=== PATIENT | male | born 1990 | race Caucasian/White ===

== ENCOUNTER 2022-12-07 08:45 | Emergency (ER) | payer BC, SELFPAY ==
--- NOTE | 2022-12-07 08:50 | ED.GENADULT ---
HPI - General Adult General Chief complaint: Arrhythmia/Palpitations Stated complaint: high blood pressure Time Seen by Provider: 12/07/22 08:51 Source: patient Mode of arrival: ambulatory Limitations: no limitations History of Present Illness HPI narrative: Amador is a 32-year-old male patient presenting to the clinic today with complaints of shortness of breath on exertion, headache, blurry vision, dizziness, palpitations, and high blood pressure. He reports symptoms of shortness of breath began approximately 4 days ago. States he is more short of breath with exertion. Feels as though he has an unsteady gait like he may be intoxicated-cannot focus with his eyes as he feels like he is intoxicated. Blood pressure was 134/81 in the clinic today. He does not take any blood pressure medications. He has taken his blood pressure several times over the last few days with his highest pressure being systolic 150s. States he feels as though his heart is trying to beat out of his chest at time-rates this discomfort a 2/10. Headache is a 5 to 6/10. Denies any illicit drug use, energy drinks, or increase in stress. He denies any URI symptoms. He denies any blood in his stool or hematemesis. Family history of diabetes. Related Data Allergies Allergy/AdvReac Type Severity Reaction Status Date / Time amoxicillin Allergy Unknown Skin Verified 12/07/22 09:07 Reaction erythromycin base Allergy Unknown Nausea Verified 12/07/22 09:07 imipramine Allergy Unknown agitation Verified 12/07/22 09:07 Review of Systems Review of Systems: Pertinent positives per HPI. Patient denies any fever, chills, rash, visual changes, cough, runny nose, sore throat, shortness of breath, chest pain, palpitations, nausea, vomiting, diarrhea, constipation, abdominal pain, or any urinary issues. [facility] Past Medical History Medical History (Updated 12/07/22 @ 11:11 by Isabel Garcia PA-C) No pertinent past medical history Surgical History Surgical History (Updated 12/07/22 @ 11:11 by Isabel Garcia PA-C) No pertinent past surgical history Family History Family History Father Diabetes mellitus Social History Social History (Reviewed 12/07/22 @ 08:51 by JOSE G Paniagua Smoking status: Never smoker Comments At the time of my signature, I reviewed and agree with the nursing past medical, surgical, social, and family history. There is no relevant family history pertinent to the patient complaint. Exam Narrative: General: Well-developed, well nourished, in no apparent distress Head: Normocephalic, atraumatic Eyes: Pupils equally round and reactive to light bilaterally, EOM intact, sclera and conjunctive clear, no discharge, lids normal Ears: TMs intact and clear, ear canals ceremonious, no drainage, grossly hearing normal. Nose: Nares patent, no discharge, no inflammation, no sinus tenderness. Mouth: Oropharynx without lesions or masses, good dentition, MMM. Neck: Supple, trachea midline, no enlargement of anterior or posterior cervical nodes, no thyroid masses or goiter palpable. Cardio: Regular rate and rhythm, s1 and s2 normal, no murmur appreciated. Resp: Clear to auscultation bilaterally anteriorly and posteriorly, no rhonchi, rales, wheezing or rubs Extremities: No deformity, no edema, no cyanosis, capillary refill less than 2 seconds, peripheral pulses palpable and strong. Integumentary: [place], warm, and dry, intact without lesion, no rashes. Course Course Emergency Course: Portions of this record may have been created with voice recognition software. Level of Care: Express Care Visit Vital Signs Vital signs: Vital signs reviewed Transfer Transfered to: [place] Transportation: Other (Private car) Transfer rationale: SOB,CAAL,Fatigue,Dizziness, Blurry vision, and palpitations Accepting physician: Isabel CLEMONS Transfer comments: T
[2022-12-07 08:55] VITALS: BP 134/81; PULSE 77; RESP 18; TEMP 36.4; O2SAT 99
[2022-12-07 09:07] LABS: Glucose Point of Care 107 mg/dl (65-105)
--- NOTE | 2022-12-07 09:10 | ECG_ITS ---
Measurements Intervals [place] Rate: 68 P: 20 MD: 161 QRS: 35 QRSD: 102 T: 27 QT: 389 QTc: 414 Interpretive Statements SINUS RHYTHM BASELINE ARTIFACT- I, III, AVL NORMAL ECG NO PREVIOUS ECG AVAILABLE FOR COMPARISON Electronically Signed On 12-07-2022 13:27:57 CDT by Carl Flowers D.O.
[2022-12-07 09:15] VITALS: BP 130/73; BP 131/81; PULSE 80; PULSE 86
[2022-12-07 09:16] VITALS: BP 125/79; PULSE 94
== END 2022-12-07 09:23 | disposition short-term general hospital (02) ==
PROVIDERS: Emergency Provider Nurse Practitioner Family; PCP Family Medicine
DX: R06.02 Shortness of breath (principal); R00.2 Palpitations; R53.83 Other fatigue; R51.9 Headache, unspecified
CPT/HCPCS: 82948; 93005; 99213; G0463

== ENCOUNTER 2022-12-07 09:42 | Emergency (ER) | payer BC, SELFPAY ==
[2022-12-07] VITALS (8 sets, daily range): BP systolic 122–157; BP diastolic 68–91; PULSE 65–88; RESP 16–18; TEMP 36.7; O2SAT 98–100
--- NOTE | ~2022-12-07 | CT_ITS ---
EXAMINATION: CT BRAIN W/O DATE: 12/07/2022 11:34 INDICATION: Headaches for 4 days. Lightheadedness. TECHNIQUE: Computed tomography (CT) of the head was performed without intravenous contrast. The dose- length product was 605.33 mGy-cm. Automated exposure control and iterative reconstruction technique w ere employed. COMPARISON: No prior studies for comparison. FINDINGS: Normal brain parenchymal volume for age. Normal conner-white differentiation. No acute intrac ranial hemorrhage, infarction, mass or mass effect. No ventriculomegaly or midline shift. Midline sagittal images demonstrate a normal corpus callosum, c raniovertebral junction and sella turcica. Basilar cisterns are patent. Paranasal sinuses are pneumatized. There is a left mastoid effusion. No depressed skull fractures. IMPRESSION: 1. No acute intracranial abnormality. 2: Left mastoid effusion. Reviewed, dictated and finalized at location A.
--- NOTE | 2022-12-07 10:27 | ECG_ITS ---
Measurements Intervals [place] Rate: 65 P: 27 AL: 164 QRS: 48 QRSD: 103 T: 42 QT: 396 QTc: 412 Interpretive Statements SINUS RHYTHM NORMAL ECG COMPARED TO ECG 12/07/2022 09:07:44 NO SIGNIFICANT CHANGES Electronically Signed On 12-07-2022 13:32:55 CDT by Carl Flowers D.O.
--- NOTE | 2022-12-07 10:34 | ED.GENADULT ---
HPI - General Adult General Chief complaint: Headache Stated complaint: HEADACHE Time Seen by Provider: 12/07/22 10:26 Source: patient and old records reviewed Mode of arrival: ambulatory Limitations: no limitations History of Present Illness HPI narrative: Patient is a 32 y/o male who presents to the ED with c/o lightheadedness and HAs. Patient reports feeling lightheaded with movement and changing positions for the last 4 days. He describes it as being near syncopal and somewhat as though the room is spinning. He has not passed out or fallen. He also c/o HAs upon waking for the last 4 days. Reports some improvement of pain with ibuprofen. He further reports having fatigue, intermittent shortness of breath, and occasional heart palpitations. He denies worsening of shortness of breath with exertion. He does report he has been drinking energy drinks more frequently lately. Denies any chest pain. Denies lower extremity pain or swelling. Denies abdominal pain, vision changes, vomiting, weakness. Related Data Allergies Allergy/AdvReac Type Severity Reaction Status Date / Time amoxicillin Allergy Unknown Skin Verified 12/07/22 09:07 Reaction erythromycin base Allergy Unknown Nausea Verified 12/07/22 09:07 imipramine Allergy Unknown agitation Verified 12/07/22 09:07 Review of Systems Review of Systems: CONSTITUTIONAL: Denies fever, chills, or sweats. EYES: Denies visual changes. CARDIOVASCULAR: See HPI. RESPIRATORY: See HPI. GASTROINTESTINAL: Denies abdominal pain, nausea, vomiting. MUSCULOSKELETAL: Denies back pain, joint pain, or myalgia. NEUROLOGIC: See HPI. All systems reviewed & are unremarkable except as noted in HPI and below PMFSH Past Medical History Medical History (Updated 12/07/22 @ 13:56 by Isabel Garcia PA-C) No pertinent past medical history Surgical History Surgical History (Updated 12/07/22 @ 11:11 by Isabel Garcia PA-C) No pertinent past surgical history Family History Family History Father Diabetes mellitus Social History Social History Smoking status: Never smoker Exam Narrative: GENERAL: Well appearing, obese with BMI of 32.6, non-toxic, in no acute distress. HEAD: Normocephalic, atraumatic. EYES: PERRLA/EOMI, conjunctiva clear. No nystagmus. ENT: Moderate amount of cerumen in bilateral ear canals, unable to visualize TMs. No mastoid tenderness bilaterally. MMs normal. No mastoid redness, swelling, tenderness. NECK: Supple. No adenopathy, no masses. No meningeal signs. RESPIRATORY: Airway patent, respirations nonlabored. Clear to auscultation bilaterally, no rales, rhonchi, wheezing. CARDIOVASCULAR: Regular rate and rhythm without murmurs, rubs, or gallops. Radial pulses 2+ and equal bilaterally. ABDOMINAL: Soft, nontender, nondistended, no hepatosplenomegaly. Normoactive BS. MUSCULOSKELETAL: Moves all extremities. Strength/ROM intact without gross deformities. No edema. No calf tenderness. SKIN: Warm, dry, normal color. No rashes. NEURO: A&O X3. Speech clear. Cranial nerves II-XII grossly intact. Steady gait. No ataxic movements. No focal deficits. PSYCHIATRIC: Appropriate mood and affect. Normal interaction. Course Vital Signs Vital signs: Vital Signs Temperature 98.1 F 12/07/22 09:49 Pulse Rate 77 12/07/22 09:49 Respiratory Rate 16 12/07/22 09:49 Blood Pressure 139/78 12/07/22 09:49 Pulse Oximetry 100 12/07/22 09:49 Oxygen Delivery Room Air 12/07/22 09:49 Temperature 98.1 F 12/07/22 09:49 Pulse Rate 88 12/07/22 14:14 Respiratory Rate 18 12/07/22 14:14 Blood Pressure 127/68 12/07/22 14:14 Pulse Oximetry 99 12/07/22 14:14 Oxygen Delivery Room Air 12/07/22 09:49 Medical Decision Making MDM Narrative Medical decision making narrative: Patient presented to ED with 4-day history o
[2022-12-07 10:44] LABS: Basophils Absolute Auto 0.1 K/mm3 (0.0-0.1); Basophils Percent Auto 0.8 % (0.2-1.2); Eosinophils Absolute Auto 0.1 K/mm3 (0-0.3); Eosinophils Percent Auto 1.5 % (0-4.4); Hematocrit 47.2 % (42.0-52.0); Hemoglobin 15.9 g/dL (14.0-18.0); Immature Granulocyte Absolute 0.02 K/mm3 (0.00-0.031); Immature Granulocyte Percent A 0.3 % (0-0.5); Lymphocytes Absolute Auto 1.57 K/mm3 (0.9-3.2); Lymphocytes Percent Auto 23.8 % (18.3-44.2); Mean Corpuscular HGB Conc 33.7 g/dl (32-36); Mean Corpuscular Hemoglobin 29.8 pg (26-34); Mean Corpuscular Volume 88.4 fl (80-100); Mean Platelet Volume 9.4 fl (7.4-10.4); Monocytes Absolute Auto 0.6 K/mm3 (0.1-0.6); Monocytes Percent Auto 9.4 % (2.6-8.5); Neutrophils Absolute Auto 4.2 K/mm3 (1.3-6.7); Neutrophils Percent Auto 64.2 % (45.5-73.1); Platelet Count Result 248 k/mm3 (150-375); Red Blood Count 5.34 M/mm3 (4.6-6.20); Red Cell Distribution Width 11.9 % (11.5-14.5); White Blood Count 6.6 K/mm3 (4.5-10.0)
[2022-12-07 10:55] LABS: Alanine Aminotransferase 34 U/L (6-50); Albumin Level 4.4 g/dL (3.5-5.1); Alkaline Phosphatase 78 U/L (38-126); Anion Gap 5 mmol/L (8-16); Aspartate Amino Transferase 32 U/L (17-59); Bilirubin,Total 0.3 mg/dL (0.2-1.3); Blood Urea Nitrogen 20 mg/dL (9-20); Calcium 8.9 mg/dL (8.4-10.2); Carbon Dioxide 28 mmol/L (22-30); Chloride 107 mmol/L (98-107); Estimated CRCL calculation 155 ml/min; Estimated Glomerular Filt Rate > 60; Glucose 98 mg/dL (65-110); Potassium 4.1 mmol/L (3.4-5.0); Sodium 140 mmol/L (137-145)
[2022-12-07 11:06] LABS: Troponin I < 0.012 ng/mL (0.000-0.034)
[2022-12-07 11:15] LABS: D Dimer 0.31 ug/mL (<0.48)
[2022-12-07] MEDS: MECLIZINE HCL 25 MG TABLET PO (11:25)
[2022-12-07] MEDS: SODIUM CHLORIDE 0.9% IV 1,000 ML 999 ML IV CONT (11:25)
[2022-12-07] MEDS: KETOROLAC 30 MG/ML VIAL (*BKC) IV PUSH (13:50)
== END 2022-12-07 14:16 | disposition home or self-care (01) ==
PROVIDERS: Emergency Provider Physician Assistant; PCP Family Medicine
DX: R51.9 Headache, unspecified (principal); I95.1 Orthostatic hypotension; H61.23 Impacted cerumen, bilateral
CPT/HCPCS: 36415; 69209; 70450; 80053; 84484; 85025; 85380; 93005; 96361; 96374; 99284; A9270; J1885; J7030

== ENCOUNTER 2023-04-07 08:40 | Outpatient (CLI) | payer BC, SELFPAY ==
--- NOTE | ~2023-04-07 | XR_ITS ---
XR shoulder LT min 2V 04/07/2023 09:00 INDICATION: Left shoulder pain PROCEDURE: 4 views left shoulder COMPARISON: No prior studies for comparison. FINDINGS: Fracture, dislocation or subluxation is not identified. The soft tissues appear within norm al limits. No foreign bodies are identified. IMPRESSION: 1: NO ACUTE BONE OR JOINT ABNORMALITY IDENTIFIED. Reviewed, dictated and finalized at location L.
== END 2023-04-07 08:41 | disposition home or self-care (01) ==
LOC: ANHIMG 08:42
PROVIDERS: PCP Family Medicine; Visit Provider Physician Assistant
DX: M25.512 Pain in left shoulder (principal)
CPT/HCPCS: 73030

== ENCOUNTER 2023-04-14 13:00 | Outpatient (CLI) | payer BC, SELFPAY ==
--- NOTE | ~2023-04-14 | XR_ITS ---
EXAMINATION: XR lg joint inject/asp w image DATE: 04/14/2023 13:42 INDICATION: Left shoulder pain TECHNIQUE: A time-out was performed to verify the patient's name, date of , and procedure to b e performed. The procedure including the risks, benefits, and alternatives was discussed with the pat ient. Risks discussed included bleeding and infection. The patient understood the risks and agreed to proceed. The skin overlying the rotator cuff interval of the left glenohumeral joint was prepped an d draped in usual sterile fashion. Anesthetic was administered with 1% lidocaine subcutaneously. A 22 G needle was advanced under fluoroscopic guidance into the joint. Injection of 1 mL of Omnipaque 240 confirmed intra-articular position of the needle. Subsequently, injectate consisting of 4 mL a 3 :1 mixture of 1% lidocaine: 40 mg/mL triamcinolone for a total dosage of 40 mg triamcinolone was inst illed. Washout of contrast was seen confirming intra-articular administration. The needle was removed and the entry site was cleaned and dressed. There were no immediate complications. Fluoroscopy expo sure time was 0.1 minutes. The total number of images was 2. FINDINGS: Real-time fluoroscopy demonstrates the needle in the left glenohumeral joint. Patient's orestes n prior to procedure:02/02. Patient's pain following the procedure: 12/03. IMPRESSION: 1. Successful left glenohumeral joint injection of local anesthetic and steroid with decrease in the patient's presenting pain. Reviewed, dictated and finalized at location A.
== END 2023-04-14 13:01 | disposition home or self-care (01) ==
LOC: ANHIMG 13:06
PROVIDERS: PCP Family Medicine; Visit Provider Physician Assistant
DX: M25.512 Pain in left shoulder (principal)
CPT/HCPCS: 20610; 77002; J3301; Q9966

== ENCOUNTER 2023-12-14 16:58 | Emergency (ER) | payer BC, SELFPAY ==
--- NOTE | ~2023-12-14 | XR_ITS ---
EXAMINATION: XR foot RT min 3V DATE: 12/14/2023 17:17 INDICATION: Right foot injury and pain. TECHNIQUE: 4 views of right foot were obtained. COMPARISON: None. FINDINGS: Bone alignment is normal. No fracture. There is mild osteoarthritis of first metatarsophala ngeal joint and first interphalangeal joint. IMPRESSION: 1. Mild polyarticular osteoarthritis. Reviewed, dictated and finalized at location A.
--- NOTE | 2023-12-14 17:03 | ED.LOWEXIN ---
HPI - Extremity Injury (Lower) General Chief Complaint: Extremity Injury, Lower Stated Complaint: Injured Foot Source: patient and RN notes reviewed Mode of arrival: ambulatory Limitations: no limitations History of Present Illness HPI Narrative: Patient is a 33-year-old male who presents to the [facility] with complaints of right foot pain. Patient states that this morning he went to kick a ball when he believed he may have kicked a pothole instead. He reports pain to the big toe radiating medially to just below the ankle. He reports moderate swelling. Reports decreased range of motion. He is neurovascularly intact distally. He denies numbness and sensation is intact. Patient reports a constant aching and burning to the area. Patient states that he heard a crack during the incident. Related Data Home Medications Medication Instructions Recorded Confirmed multivitamin 1 tablet PO DAILY 12/14/23 12/14/23 Allergies Allergy/AdvReac Type Severity Reaction Status Date / Time amoxicillin Allergy Unknown Skin Verified 12/14/23 17:05 Reaction erythromycin base Allergy Unknown Nausea Verified 12/14/23 17:05 imipramine Allergy Unknown agitation Verified 12/14/23 17:05 Review of Systems Review of Systems: CONSTITUTIONAL: Denies fever, chills, or sweats. EYES: Denies visual changes, redness, or discharge. ENT: Denies otalgia and sore throat CARDIOVASCULAR: Denies chest pain, palpitations, or edema. RESPIRATORY: Denies cough or dyspnea. GASTROINTESTINAL: Denies abdominal pain, nausea, vomiting, or diarrhea. GENITOURINARY: Denies dysuria or hematuria. SKIN: Denies rash or itching. MUSCULOSKELETAL: Denies back pain or myalgia. Reports right foot pain. NEUROLOGIC: Denies headache, numbness, or weakness. Pertinent positives per HPI. [facility] Surgical History Surgical History No pertinent past surgical history Family History Family History Father Diabetes mellitus Social History Social History Smoking status: Never smoker Alcohol intake: never Substance use: never Substance use type: does not use Lack of Transportation: No Lack of Food: Never True Current Housing: I Have Housing Concerned About Future Housing: No Difficulty Paying Gas/Electric Bills: No Difficulty Paying for Meds: No Currently Unemployed: No Education: High School Diploma/GED Living arrangements: alone Occupation/Education: occupation Gender identity (if verbalized by the patient): Male Sexual Orientation (if Verbalized by the Patient): Straight or Heterosexual Spiritual care concerns: No Comments At the time of my signature, I reviewed and agree with the nursing past medical, surgical, social, and family history. There is no relevant family history pertinent to the patient complaint. Exam Narrative: GENERAL: This is a well-nourished, well-developed patient, in no apparent distress. HEAD: normocephalic, atraumatic. EYES: Sclera clear/white. Vision is grossly intact. EARS: External ears normal. Hearing grossly intact. NOSE: External nose normal with no obvious nasal discharge, nares without redness, no rhinorrhea. THROAT: Mucous membranes moist, posterior pharynx clear. NECK: Neck supple, non-tender without lymphadenopathy, masses or thyromegaly. CARDIOVASCULAR: Regular rate and rhythm without murmurs, gallops, or rubs. RESPIRATORY: Clear to auscultation. Breath sounds equal bilaterally. No wheezes, rales, or rhonchi. GASTROINTESTINAL: Abdomen soft, non-tender, nondistended. Bowel sounds are active. No hepato-splenomegaly, or palpable masses. No guarding. SKIN: warm, intact with no suspicious lesions or rash, good texture and turgor. NEURO: awake, alert, and oriented to person, place and time. There were no obvious focal neurologic abnorm
[2023-12-14 17:26] VITALS: BP 149/91; PULSE 78; RESP 20; TEMP 36.8; O2SAT 98
== END 2023-12-14 17:33 | disposition home or self-care (01) ==
PROVIDERS: Emergency Provider Nurse Practitioner; PCP Family Medicine
DX: S93.601A Unspecified sprain of right foot, initial encounter (principal); W22.09XA Striking against other stationary object, initial encounter
CPT/HCPCS: 73630; 99213; G0463

== ENCOUNTER 2025-02-23 15:27 | Outpatient (CLI) | payer BC, SELFPAY ==
--- NOTE | ~2025-02-23 | XR_ITS ---
XR cervical spine 4-5V INDICATION: Cervicalgia TECHNIQUE: 5 views of the cervical spine. FINDINGS: No prior studies for comparison. The cervical spine is visualized to the cervicothoracic junction. There is no prevertebral soft tiss ue swelling, listhesis, or loss of vertebral body height. Intervertebral disc spaces are normal. Th e osseous central canal is patent. No displaced cervical spine fractures are identified. No alterati on of alignment with flexion/extension. IMPRESSION: 1. No significant osseous abnormality of the cervical spine. Reviewed, dictated and finalized at location A.
== END 2025-02-23 15:28 | disposition home or self-care (01) ==
PROVIDERS: PCP Family Medicine; Visit Provider Family Medicine
DX: M54.2 Cervicalgia (principal)
CPT/HCPCS: 72050

== ENCOUNTER 2025-03-28 11:28 | Emergency (ER) | payer BC, SELFPAY ==
--- OUTSIDE RECORDS SUMMARY | 2000-02-20 03:15 | XMS_ITS | Continuity of Care Document ---
Author Organization [facility] Address [address] [place] [address] Phone Care Team Providers Care Junior Programmer Analyst Name Role Phone Prema Roldan Unavailable Unavailable Advance Directives Directive Yes / No Effective Date File Name No Information Encounters Encounter Description Practice Location Reason(s) For Visit Diagnoses Date Provider Providers Copied on Encounter [facility], [address], [place], [place], [id number], [place] tel:[phone] [facility] No Information [address] , [address], [place], [address], [place]. tel:[phone] Family History Family Member Type Diagnosis Age At Onset No Information Payers Payer name Insurance type Covered green party ID Authoriza tion(s) No Information Social History Type Description Quantity Date Captured Comments Sex Male Smoking Status No Information Chief Complaint And Reason For Visit No Information Reason For Referral Reason For Referral No Information History Of Present Illness Encounter Date Complaint History Of Prese nt Illness No Information Functional Status Date Functional Assessmen t No Information Instructions Date Instruction Additional Infor mation No Information Assessments Type Assessment Date No Information Patient Care Teams Name Effective Dates (start - stop) Status Members No Information
--- NOTE | ~2025-03-28 | US_ITS ---
EXAMINATION: US scrotum doppler DATE: 03/28/2025 12:13 INDICATION: Left testicular pain TECHNIQUE: Testicular sonogram utilizing grayscale and Doppler COMPARISON: None. FINDINGS: The right testis measures 4.4 x 3.1 x 2.5 cm. The left testis measures 4.3 x 2.0 x 2.2 cm. Symmetric normal grayscale appearance to both testes. There is normal vascular flow to both testes. The right epididymis is normal with normal vascular flow. The left epididymis appears normal grayscale imaging but demonstrates subjectively asymmetric increased vascular flow on color Doppler which could be seen with epididymitis. There is no varicocele. Small bilateral hydroceles. IMPRESSION: 1. Subjective mild asymmetric increased vascular flow at the left epididymis compared with the right which could be seen with epididymitis. Bilateral testes are normal and symmetric. Reviewed, dictated and finalized at location A. IMPRESSION: 1. Subjective mild asymmetric increased vascular flow at the left epididymis c ompared with the right which could be seen with epididymitis. Bilateral testes are normal and symmetric.
[2025-03-28 11:29] VITALS: BP 153/76; PULSE 87; RESP 16; TEMP 36.4; O2SAT 99
[2025-03-28 12:06] LABS: Add Urine Microscopic? YES; Appearance Urine Cloudy (Clear); Glucose Urine UA Negative (Negative); Leukocyte Esterase Ur Negative LEU/UL (Negative); Nitrate Urine Negative (Negative); Non Pathogenic Casts 0-2; Specific Grav Ur 1.030 (1.001-1.035)
[2025-03-28 12:11] VITALS: BP 127/81; PULSE 84; RESP 16; TEMP 36.9; O2SAT 97
--- NOTE | 2025-03-28 12:52 | ED_ITS ---
HPI - Male Genitourinary General Chief complaint: Urogenital-Male Stated complaint: left testicle pain Time Seen by Provider: 03/28/25 11:51 Source: patient Mode of arrival: ambulatory Limitations: no limitations History of Present Illness HPI Narrative: 34-year-old otherwise healthy here with a complaint of left testicular pain for past 2 days. Denies any fever or chills. No history of trauma. No history of blood in the urine. MD Complaint: testicle pain Onset (ago): day(s) (2) Radiation: left testicle Severity: mild Quality: dull Relieving factors: none Exacerbating factors: none Associated symptoms: Reports denies other symptoms Related Data Home Medications ?Medication ?Instructions ?Recorded ?Confirmed ?Last Taken ?Type multivitamin 1 tablet PO DAILY 12/14/23 0 02/22/25 Unknown History Allergies Allergy/AdvReac Type Severity Reaction Status Date / Time amoxicillin Allergy Unknown Skin Verified 03/28/25 12:10 Reaction erythromycin base Allergy Unknown Nausea Verified 03/28/25 12:10 imipramine Allergy Unknown agitation Verified 03/28/25 12:10 Review of Systems Review of Systems: All systems reviewed & are unremarkable except as noted in HPI and below Constitutional: Constitutional: Reports no additional constitutional complaints Eyes: Eyes: Reports no additional eye complaints ENT: Reports system reviewed and no additional complaints, except as documented Cardiovascular: Cardiovascular: Reports no additional cardiovascular complaints Respiratory: Respiratory: Reports no additional respiratory complaints Gastrointestinal: Gastrointestinal: Reports no additional gastrointestinal complaints Genitourinary: Genitourinary: Reports as per HPI Musculoskeletal: Musculoskeletal: Reports no additional musculoskeletal complaints [facility] Surgical History Surgical History No pertinent past surgical history Family History Family History Father Diabetes mellitus Social History Social History Smoking status: Never smoker Alcohol intake: never Substance use: never Substance use type: does not use Do You Feel Safe in your Home?: Yes Lack of Transportation: No Lack of Food: Never True Current Housing: I Have Housing Concerned About Future Housing: No Difficulty Paying Gas/Electric Bills: No Difficulty Paying for Meds: No Currently Unemployed: No Education: High School Diploma/GED Difficulty w/ Childcare or Family Care: No Living arrangements: alone Occupation/Education: occupation Gender identity (if verbalized by the patient): Male Sexual Orientation (if Verbalized by the Patient): Straight or Heterosexual Spiritual care concerns: No Exam Narrative: GENERAL: Well-appearing, well-nourished, and in no acute distress. HEAD: Normocephalic, atraumatic. EYES: PERRLA and EOMI. ENT: Nares clear, no rhinorrhea or epistaxis. Mucous membranes moist. NECK: Supple. CHEST: Clear to auscultation. No respiratory distress. HEART: Regular rate and rhythm. No murmur heard. Normal peripheral pulses. ABDOMEN: Soft, nontender, nondistended, normal active bowel sounds. left testicle mild tenderness , EXTREMITIES: Normal range of motion. No edema. SKIN: Warm, dry, no rash. NEURO: No focal deficits. Alert and oriented x3. PSYCH: Normal mood and affect. Course Course Emergency Course: Informed patient about his BUN ultrasound findings. Advised to take antibiotic as prescribed follow-up with the primary doctor or urologist. Vital Signs Vital signs: Vital Signs Temperature 36.4 C L 03/28/25 11:29 Pulse Rate 87 03/28/25 11:29 Respiratory Rate 16 03/28/25 11:29 Blood Pressure 153/76 H 03/28/25 11:29 Pulse Oximetry 99 03/28/25 11:29 Temperature 36.9 C 03/28/25 12:11 Pulse Rate 84 03/28/25 12:11 Respiratory Rate 16 03/28/25 12:11 Blood Pressure 127/81 03/28/25 12:11 Pulse Oximetry 97 03/28/25 12:11 Oxygen Delivery Room Air 03/28/25 12:11 MDM - Male Genitourinary Differential Diagnosis Differential diagnosis: Likely urinary tract infection and epididymitis Medical Records Attestation: I reviewed the patient's medical records. Lab Data Attestation: I reviewed the patient's lab results. Labs: Lab Results 03/28/25 Range/Units 11:53 Urine Color Yellow (Yellow) Urine Appearance Cloudy H (Clear) Urine pH 5.5 (5.0-9.0) Ur Specific Lily 1.030 (1.001-1.035) Urine Protein Negative (Negative) mg/dL Urine Glucose (UA) Negative (Negative) mg/dL Urine Ketones Negative (Negative) mg/dL Ur Blood (Man) Negative (Negative) Urine Nitrate Negative (Negative) Urine Bilirubin Negative (Negative) Urine Urobilinogen 0.2 (<2.0) mg/dL Leukocyte Esterase Rfl Negative (Negative) TRACY/UL Urine RBC 0-2 (0-2) /hpf Urine WBC 0-5 (0-3) /hpf Ur Squamous Epith Cells None seen (Few) /hpf Urine Bacteria None seen /hpf Urine Casts 0-2 Imaging Data Radiologist's impression: ITS Impressions Scrotum Ultrasound 03/28/25 12:39 IMPRESSION: 1. Subjective mild asymmetric increased vascular flow at the left epididymis compared with the right which could be seen with epididymitis. Bilateral testes are normal and symmetric. Discharge Plan Discharge Clinical Impression: Epididymitis Patient Disposition: Home Condition: Stable Instructions: Epididymitis (ED) Additional Instructions: Take antibiotic as presscribed , follow with your doctor or urologist , can take Tylenol or Ibuprofen for pain as needed. Patient Language: Welsh Prescriptions: New ciprofloxacin HCl [Cipro] 500 mg tablet 500 mg PO Q12H Qty: 14 0RF No Action multivitamin [Multi-Vitamin] Tablet 1 tablet PO DAILY [id number] 3.5-10,000-1 mg/mL-unit/mL-% solution 4 drp LEFT EAR TID Qty: 10 0RF fluticasone propionate 50 mcg/actuation spray,suspension 2 spray intranasal DAILY Qty: 16 0RF Rx Instructions: administer into each nostril diclofenac sodium 75 mg tablet,delayed release (DR/EC) 75 mg PO BID Qty: 30 0RF Follow-up/Referrals: Guero Bauer MD [Primary Care Provider, [facility]] Time of Disposition: 12:58
== END 2025-03-28 13:11 | disposition home or self-care (01) ==
PROVIDERS: Emergency Provider Family Medicine; PCP Family Medicine
DX: N45.1 Epididymitis (principal)
CPT/HCPCS: 76870; 81001; 93976; 99284